=== PATIENT | male | born 1945 | race African-American/Black ===

== ENCOUNTER 2020-02-20 11:39 | Inpatient (IN) | payer OTHER, MEDICAID ==
[~2020-02-20] VITALS: Ht 177.8 cm; Wt 77.7 kg
[2020-02-20] MEDS ORDERED: SODIUM CHLORIDE 0.9% 250 ML IV ONE (12:00)
[2020-02-20] MEDS ORDERED: VANCOMYCIN 1 G PREMIX 200 ML IV ONE (12:00)
[2020-02-20] MEDS ORDERED: PIPERACILLIN/TAZ 3.375G PREMIX 50 ML IV ONE (12:00)
[2020-02-20] MEDS ORDERED: HYDROCORTISONE SOD SUCCINATE 100 MG/2 ML VIAL IV ONE (12:00)
[2020-02-20 12:30] LABS: BASOPHILS % 0.8 % (0.0-2.0); EOSINOPHILS % 0.7 % (0.0-5.0); HEMATOCRIT. 31.9 % (42.0-52.0); HEMOGLOBIN. 10.7 g/dL (14.0-18.0); LYMPHOCYTES % 13.2 % (20.0-50.0); MEAN CORPUSCULAR HEMOGLOBIN 31.5 pg (28.0-32.0); MEAN CORPUSCULAR VOLUME 93.9 fL (80.0-94.0); MEAN PLATELET VOLUME 9.1 fl (7.4-10.4); MONOCYTES % 6.6 % (2.0-8.0); NEUTROPHILS % 78.7 % (40.0-76.0); PLATELET 249 x1000/uL (130-400); RED BLOOD CELL COUNT 3.39 mill/uL (4.7-6.1); RED CELL DISTRIBUTION WIDTH 22.3 % (11.6-14.6)
[2020-02-20 12:35] LABS: CHLORIDE 105 mEq/L (98-107)
[2020-02-20 12:40] LABS: INR 1.3; PROTHROMBIN TIME 13.4 sec (9.6-11.0)
[2020-02-20 13:47] LABS: PLATELET ESTIMATE NORMAL
[2020-02-20 16:21] LABS: CLARITY URINE CLEAR (CLEAR); COLOR URINE YELLOW (YELLOW); KETONES URINE NEGATIVE (NEGATIVE); LEUKOCYTE ESTERASE URINE NEGATIVE (NEGATIVE); NITRITE URINE NEGATIVE (NEGATIVE); OCCULT BLOOD URINE NEGATIVE (NEGATIVE); PH URINE 8.5 (4.5-8.0); PROTEIN URINE NEGATIVE (NEGATIVE); SPECIFIC GRAVITY URINE 1.011 (1.005-1.030)
[2020-02-20] MEDS ORDERED: AZITHROMYCIN 500 MG in DEXT 5% WATER 250 ML IV SCH (18:15)
[2020-02-20] MEDS ORDERED: MORPHINE SULFATE 2 MG/ML CPJ (NOT FOR IM USE) IV PRN (22:00)
[2020-02-20] MEDS ORDERED: LORAZEPAM 2MG/ML CPJ IV PRN (22:00)
[2020-02-20] MEDS ORDERED: DOCUSATE SODIUM 100MG CAPSULE PO PRN (22:00)
[2020-02-20] MEDS ORDERED: HYDROCODONE/ACETAMINOPHEN 10/325MG TABLET PO PRN (22:00)
[2020-02-20] MEDS ORDERED: GUAIFENESIN 200MG/10ML SUGAR FREE UDC PO PRN (22:00)
[2020-02-20] MEDS ORDERED: ONDANSETRON HCL 4MG/2ML INJ IV PRN (22:00)
[2020-02-20] MEDS ORDERED: ACETAMINOPHEN 325MG TABLET PO PRN (22:00)
[2020-02-20] MEDS ORDERED: DIPHENHYDRAMINE 50MG/ML VIAL IV PRN (22:00)
[2020-02-20] MEDS ORDERED: ALBUTEROL 6.7GM HFA INHALER ORI PRN (22:00)
[2020-02-20] MEDS ORDERED: MAGNESIUM/ALUMINUM HYDROXIDE/SIMETHICONE 30ML UDC PO PRN (22:00)
[2020-02-20] MEDS ORDERED: ENOXAPARIN 30MG/0.3ML SYR SUBCUT SCH (22:00)
[2020-02-20] MEDS ORDERED: CLONIDINE 0.1MG TABLET PO PRN (22:00)
[2020-02-20 23:00] VITALS: BP 98/62
[2020-02-20] MEDS ORDERED: CEFTRIAXONE 1 G PREMIX 50 ML IV SCH (23:00)
[2020-02-20] MEDS ORDERED: CEFTRIAXONE 1,000 MG in DEXTROSE 5% WATER 50 ML IV SCH (23:30)
[2020-02-21] VITALS: BP 98/62
[2020-02-21] MEDS: SODIUM CHLORIDE 0.9% INJ 3ML FLUSH IVF SCH ×3 (01:04→13:21)
[2020-02-21] MEDS ORDERED: APIX2.5T PO (01:47)
[2020-02-21] MEDS ORDERED: ASPI-1079 PO (01:48)
[2020-02-21] MEDS ORDERED: BUME0.5T6 MT (01:48)
[2020-02-21 04:00] VITALS: BP 101/62
[2020-02-21 07:24] LABS: CHLORIDE 101 mEq/L (98-107)
[2020-02-21 07:25] LABS: EOSINOPHILS % 0.3 % (0.0-5.0); HEMATOCRIT. 30.8 % (42.0-52.0); HEMOGLOBIN. 10.3 g/dL (14.0-18.0); LYMPHOCYTES % 12.8 % (20.0-50.0); MEAN CORPUSCULAR HEMOGLOBIN 31.3 pg (28.0-32.0); MEAN CORPUSCULAR VOLUME 93.9 fL (80.0-94.0); MEAN PLATELET VOLUME 9.4 fl (7.4-10.4); MONOCYTES % 5.4 % (2.0-8.0); NEUTROPHILS % 80.5 % (40.0-76.0); PLATELET 288 x1000/uL (130-400); RED BLOOD CELL COUNT 3.28 mill/uL (4.7-6.1); RED CELL DISTRIBUTION WIDTH 22.4 % (11.6-14.6)
[2020-02-21 08:00] VITALS: BP 100/61
[2020-02-21] MEDS ORDERED: ALPRAZOLAM 0.5 MG TABLET PO PRN (09:00)
[2020-02-21 11:31] VITALS: BP 90/59
[2020-02-21] MEDS ORDERED: POTASSIUM CHLORIDE 20MEQ TABLET SR PO SCH (12:45)
[2020-02-21] MEDS ORDERED: AZITHROMYCIN 500 MG in DEXT 5% WATER 250 ML IV SCH ×2 (14:00→16:00)
[2020-02-21 16:00] VITALS: BP 99/52
[2020-02-21] MEDS ORDERED: LEVOFLOXACIN 500MG PREMIX 100 ML IV SCH ×2 (18:00→20:00)
[2020-02-21] MEDS ORDERED: METRONIDAZOLE 500 MG PREMIX 100 ML IV SCH (18:00)
[2020-02-22] MEDS ORDERED: LEVOFLOXACIN 250MG PREMIX 50 ML IV SCH (20:00)
== END 2020-02-21 20:05 | disposition left against medical advice (07) | DRG 871 ==
LOC: ER 11:47 → EDBEDREQ 14:32 → 7EST 15:45 → EDBEDREQ 15:54 → EDBEDREQSVC 15:54 → 7EST 15:57 → ENRESERV 17:14
PROVIDERS: ADMIT Internal Medicine; ATTEND Internal Medicine
DX: A41.9 Sepsis, unspecified organism (principal); J18.9 Pneumonia, unspecified organism; J96.00 Acute respiratory failure, unspecified whether with hypoxia or hypercapnia; N17.0 Acute kidney failure with tubular necrosis; J90 Pleural effusion, not elsewhere classified; E46 Unspecified protein-calorie malnutrition; I25.10 Atherosclerotic heart disease of native coronary artery without angina pectoris; K57.90 Diverticulosis of intestine, part unspecified, without perforation or abscess without bleeding; I12.9 Hypertensive chronic kidney disease with stage 1 through stage 4 chronic kidney disease, or unspecified chronic kidney disease; N18.9 Chronic kidney disease, unspecified; R74.01 Elevation of levels of liver transaminase levels; K80.20 Calculus of gallbladder without cholecystitis without obstruction; D64.9 Anemia, unspecified; R65.20 Severe sepsis without septic shock; Z20.828 Contact with and (suspected) exposure to other viral communicable diseases; E80.6 Other disorders of bilirubin metabolism; Z95.1 Presence of aortocoronary bypass graft; Z68.24 Body mass index [BMI] 24.0-24.9, adult; Z95.0 Presence of cardiac pacemaker; Z79.899 Other long term (current) drug therapy; I25.2 Old myocardial infarction; R55 Syncope and collapse
CPT/HCPCS: 36415; 71045; 74176; 80053; 81003; 82962; 83605; 83880; 84145; 84484; 85025; 86850; 86900; 87635; 93005; 96365; 99291; J0456; J0696; J1200; J1650; J1720; J1956; J2060; J2270; J2543; J3370; J3490; J7050; J7060